=== PATIENT | female | born 1970 | race Caucasian/White ===

== ENCOUNTER 2017-08-09 20:10 | Emergency (ER) | payer OTHER ==
[2017-08-09 21:29] LABS: BASOPHILS 0.5 % (0-2); EOSINOPHILS 0.8 % (0-7); HEMATOCRIT 33.8 % (36.0-48.0); HEMOGLOBIN 11.1 g/dL (12-16); IMMATURE GRANULOCYTES 0.7 % (0-5); LYMPHOCYTES 29.1 % (15-50); MCH 28.3 pg (26.0-34.0); MCHC 32.8 g/dL (31.0-37.0); MCV 86.2 fL (80.0-100.0); MEAN PLATELET VOLUME 8.3 fL (7.4-10.4); MONOCYTES 8.3 % (2-11); NEUTROPHILS 60.6 % (40-80); PLATELET COUNT 277 10x3/uL (130-400); RBC 3.92 10x6/uL (4.00-5.40); RDW 14.1 % (11.5-14.5); WBC 8.3 10x3/uL (4.8-10.8)
[2017-08-09 21:40] LABS: ALBUMIN 2.9 g/dL (3.4-5.0); ANION GAP 12.2 mmol/L (8-16); BILIRUBIN - TOTAL 0.14 mg/dL (0.2-1.3); CALCIUM 8.5 mg/dL (8.5-10.1); CARBON DIOXIDE 26.1 mmol/L (21.0-32.0); CREATININE - SERUM 1.4 mg/dL (0.6-1.3); POTASSIUM - SERUM 3.3 mmol/L (3.5-5.1)
== END 2017-08-09 22:02 | disposition home or self-care (01) ==
LOC: D.ER 20:10
PROVIDERS: Physician Assistant Medical
DX: K08.89 Other specified disorders of teeth and supporting structures (principal)

== ENCOUNTER 2020-09-16 19:29 | Observation (INO) | payer OTHER ==
[~2020-09-16] VITALS: Ht 154.9 cm; Wt 81.8 kg
--- NOTE | ~2020-09-16 | HEMODYNAMI ---
PATIENT:NATHANIEL CROWE MEDICAL RECORD: [id number] : 74 [id number] ADMISSION DATE: 09/16/20 Generatedon:115:52 Patient name: NATHANIEL CROWE Patient #: [id number] SSN: [id number] : 1970 Date of study: 09/17/2020 Page: Of Hemodynamic Procedure Report Patient Data Patient Demographics Procedure consent was obtained First Name: NATHANIEL Gender: Female Last Name: AMRITA : 1970 Patient #: [id number] Age: 49 year(s) Race: SSN: [id number] Additional ID: [id number] Contact details Address: [address] [place] [address] rd State: [place] City: [place] Zip code: [address] Past Medical History Allergies: No known allergies Admission Admission Data Admission Date: 09/16/2020 Admission Time: 22:53 Arrival Date: 09/17/2020 Arrival Time: 0:00 Admit Source: Other Insurance Payor: Private Room #: D.2116 health insurance [facility] #: [id number] Lab Results Lab Result Date: 09/17/2020 Lab Result Time: 0:00 Biochemistry Name Units Result Min Max BUN mg/dl 21 --(----)-* 7 18 CK-MB ng/ml 2.5 --(--*-)-- 0 3.6 Creatinine mg/dl 1.3 --(---*)-- 0.6 1.3 eGFR ml/min 46 *-(----)-- 90 120 NONAFRICAN Troponin l ng/ml 0.053 --(---*)-- 0 0.06 CBC Name Units Result Min Max Hematocrit % 35.2 *-(----)-- 42 54 Hemoglobin g/dl 11.7 *-(----)-- 13.5 17.5 Procedure Procedure Types Cath Procedure Diagnostic Procedure [facility] w/Coronaries FFR/IVUS FFR Initial Sedation Charges Moderate Sedation 40-54 minutes PCI Procedure Coronary Stent Coronary Stent Initial Hemochron ACT Test Procedure Description Procedure Date Procedure Date: 09/17/2020 Procedure Start Time: 15:15 Procedure End Time: 15:50 Procedure Staff Name Function Ishaan Siegel MD Performing Physician Guera Campuzano RT Monitor Lore Denson RT Scrub Cailin Celaya RN Nurse Richardson Giraldo RN Nurse Procedure Data Cath Procedure Fluoroscopy Diagnostic fluoroscopy Total fluoroscopy Time: 7.3 time: 7.3 min min Diagnostic fluoroscopy Total fluoroscopy dose: 925 dose: 925 mGy mGy Contrast Material Contrast Material Type Amount (ml) Isovue 370 157 Entry Location Entry Primary Successful Side Size Upsize Upsize Entry Closure Giron ccessful Closure Location (Fr) 1 (Fr) 2 (Fr) Remarks Device Remarks Radial Right 6 Fr Mechanical artery Short Compression Estimated blood loss: 10 ml Diagnostic catheters Device Type Used For End Catheter Placement DIAGNOSTIC Folcroft 110cm 5 Procedure Fr catheter ([id number]) DIAGNOSTIC AR MOD 5Fr Procedure Catheter ([id number]) Procedure Complications No complications Procedure Medications Medication Administration Route Dosage Oxygen etCO2 Nasal cannula 2 l/min Lidocaine 2% added to field 20 Heparin Flush Bag added to field 2 bags (1000units/500ml NS) 0.9% NaCl I.V. 100 ml/hr Benadryl I.V. 50 mg Radial Cocktail added to field 1 syringe (Verapamil 2mg/Nitro 400mcg/Heparin 1500units) Versed I.V. 0.5 mg Versed I.V. 0.5 mg Fentanyl I.V. 50 mcg Versed I.V. 1 mg Radial Cocktail I.A. 1 syringe (Verapamil 2mg/Nitro 400mcg/Heparin 1500units) Fentanyl I.V. 50 mcg Heparin Bolus I.V. 3000 units Heparin Bolus I.V. 2000 units Fentanyl I.V. 50 mcg Nitroglycerin IC/IA I.C. 200 mcg Fentanyl I.V. 50 mcg Hemodynamics Rest HGB: 11.7 (g/dl) Heart Rate: 55 (bpm) Pressure Samples Time Site Value (mmHg) Purpose Heart Use Rate(bpm) 15:21 LV 91/6,23 Snapshot 65 15:21 AO 106/71(88) Pullback 66 15:21 LV 119/0,4 Pullback 66 Gradients Valve Time Site 1 Site 2 Mean SEP/DFP Peak To Heart Use (mmHg) (sec/min) Peak Rate (mmHg) (bpm) Aortic 15:21 LV AO 12 15 13 66 119/0,4 106/71(88) Calculations Valve P-P Mean Valve Index Valve Source Name Gradient Area Flow (cm2) Aortic 13 12 13 12 Snapshots Pre Cath Intra NCS Post Cath Vital Signs Time Heart Resp SPO2 etCO2 NIBP (mmHg) Rhythm Pain Sedation Rate (ipm) (%) (mmHg) Status Level (bpm) 15:00:05 56 12 99 36.7 158/81(106) NSR 0 (11) 10(A) , No pain 15:04:30 62 13 98 28.4 149/81(111) NSR 0 (11) 10(A) , No pain 15:08:52 64 12 97 39.7 149/85(101) NSR 0 (11) 10(A) , No pain 15:13:14 65 16 99 28.4 144/79(108) NSR 0 (11) 10(A) , No pain 15:17:36 67 12 100 38.9 143/79(100) NSR 0 (11) 10(A) , No pain 15:21:44 64 12 99 39.7 118/75(102) NSR 0 (11) 10(A) , No pain 15:25:58 69 12 98 41.9 136/77(99) NSR 0 (11) 10(A) , No pain 15:30:16 70 12 98 39.7 138/86(107) NSR 0 (11) 10(A) , No pain 15:34:34 69 12 98 41.1 152/96(128) NSR 0 (11) 10(A) , No pain 15:38:58 75 13 98 27.7 154/89(123) NSR 0 (11) 10(A) , No pain 15:43:18 70 12 99 40.4 153/92(116) NSR 0 (11) 10(A) , No pain 15:47:39 69 18 98 34.4 144/81(105) NSR 0 (11) 10(A) , No pain Medications Time Medication Route Dose Verified Delivered Reason Not es Effectiveness by by 14:57:53 Oxygen etCO2 2 l/min Ishaan Simeon used for Nasal [facility] Celaya mechanical field engineer cannula 14:58:08 Lidocaine 2% added 20ml Ishaan Quiros for local [facility] MD POMPA 14:58:30 Heparin Flush added 2 bags Ishaan Quiros used for Bag to [facility] procedure (1000units/500ml field MD POMPA NS) 14:58:41 0.9% NaCl I.V. 100 Ishaan Bai Per physician ml/hr [facility] Jeremiah Giraldo RN, MD 14:58:59 Benadryl I.V. 50 mg Ishaan Bai used for [facility] Giraldo RN procedure 15:03:19 Radial Cocktail added 1 Ishaan Quiros used for (Verapamil to syringe [facility] procedure 2mg/Nitro field MD POMPA 400mcg/Heparin 1500units) 15:03:22 Versed I.V. 0.5 mg Ishaan Richardson for sedation [facility] Giraldo RN, MD 15:03:32 Fentanyl I.V. 50 mcg Ishaan Da Silvay for sedation [facility] Giraldo RN, MD 15:10:26 Versed I.V. 0.5 mg Ishaan Richardson for sedation [facility] Jerem[facility] Giraldo RN, MD 15:16:02 Versed I.V. 1 mg Ishaan Richardson for sedation [facility] Jerem[facility] Giraldo RN, MD 15:20:31 Radial Cocktail I.A. 1 Ishaan Quiros used for (Verapamil syringe [facility] procedure 2mg/Nitro MD POMPA 400mcg/Heparin 1500units) 15:21:41 Fentanyl I.V. 50 mcg Ishaan Da Silvay for sedation [facility] Jerem[facility] Giraldo RN, MD 15:31:44 Heparin Bolus I.V. 3000 Ishaan Da Silvay for units [facility] Jeremiah Giraldo RN anticoagulation 15:37:40 Heparin Bolus I.V. 2000 Ishaan Richardson for units [facility] Jerem[facility] Giraldo RN anticoagulation 15:40:28 Fentanyl I.V. 50 mcg Ishaan Richardson for sedation [facility] Jerem[facility] Giraldo RN, MD 15:44:32 Nitroglycerin I.C. 200 mcg Ishaan Quiros for IC/IA Christal [facility] Jerem[facility] french MD, MD 15:46:04 Fentanyl I.V. 50 mcg Ishaan Richardson for sedation [facility] Jerem[facility] Giraldo RN, MD Procedure Log Time Note 14:27:12 Informed consent obtained and on chart 14:27:34 Diagnostic Cath Status : Urgent 14:27:51 Arrival Date: 09/17/2020 12:00:00 AM 14:27:52 Admit Source: Other 14: Insurance Payor : Private health insurance : Lab Result : CK-MB 2.5 ng/ml Lab Result : Troponin l 0.053 ng/ml Lab Result : BUN 21 mg/dl Lab Result : Creatinine 1.3 mg/dl : Lab Result : eGFR NONAFRICAN 46 ml/min : Lab Result : Hemoglobin 11.7 g/dl : Lab Result : Hematocrit 35.2 % 14:32:04 ACC Patient presents with Unstable Angina CCS Anginal Class 2--Slight limitation of ordinary activity. 14:32:07 Procedure Status Urgent Heart Cath (IP). 14:32:10 Time tracking: Regular hours (M-F 7:00 - 5:00) 14:32:14 Plan of Care:Hemodynamics will remain stable., Cardiac rhythm will remain stable., Comfort level will be maintained., Respiratory function will remain adequate., Patient/ family verbilizes understanding of procedure., Procedure tolerated without complication., Recovers from procedure without complications.. 14:34:06 H&P Date Dictated: 09/16/2020 Within 30 days and on chart.. 14:34:06 Pre-procedure instructions explained to patient. 14:34:07 Pre-op teaching completed and patient verbalized understanding. 14:34:08 Family unavailable. 14:34:10 Patient NPO since Midnight. 14:34:20 Patient allergic to No known allergies 14:35:44 Lab results completed and on chart. 14:35:48 Stress Test: no; N/A ? 14:35:50 Alarms reviewed by R. N. 14:35:51 Sharps counted by scrub and verified by R.N. 14:36:13 Cailin Celaya RN sent for patient. Start room use. 14:40:27 Risk of Mortality: 0.1 14:40:29 Risk of blood transfusion: 1.1 14:40:31 Risk of FELIX: 3.4 14:48:01 Patient received from Med II to CCL 1 Alert and oriented. Tansferred to table in Supine position. 14:48:03 Warm blankets applied, and lana hugger turned on for patient comfort. 14:48:03 Correct patient and procedure confirmed by team. 14:48:04 ECG and BP/O2 sat monitors applied to patient. 14:48:05 Full Disclosure recording started 14:48:07 Is the patient allergic to Iodine/contrast media? No. 14:48:09 Was the patient premedicated? No 14:57:43 Vital chart was started 14:57:53 Oxygen 2 l/min etCO2 Nasal cannula was administered by Cailin Celaya RN; used for procedure; Verbal order read back and verified. 14:58:08 Lidocaine 2% 20ml vial added to field was administered by Ishaan Siegel MD; for local anesthetic; Verbal order read back and verified. 14:58:30 Heparin Flush Bag (1000units/500ml NS) 2 bags added to field was administered by Ishaan Siegel MD; used for procedure; Verbal order read back and verified. 14:58:41 0.9% NaCl 100 ml/hr I.V. was administered by Richardson Giraldo RN; Per physician; Verbal order read back and verified. 14:58:59 Benadryl 50 mg I.V. was administered by Richardson Giraldo RN; used for procedure; Verbal order read back and verified. 14:59:58 Baseline sample Acquired. 15:00:05 Rhythm: sinus rhythm 15:00:10 Is patient on blood thinner?Yes 15:00:14 ACC The patient was administered the following blood thiners within the last 24 hours: ACCLovenox 15:00:17 Patient diabetic? No. 15:00:19 If diabetic: On Metformin? N/A 15:00:29 Patient not . Patient has had tubal. 15:00:31 ----Pre-sedation anethsthesia assessment.---- 15:00:34 Previous problem with sedation/anesthesia? No ? 15:00:35 Snore? Unknown 15:00:37 Sleep apnea? Unknown 15:00:38 Deviated septum? No 15:00:39 Opens mouth fully? Yes 15:00:40 Sticks out tongue? Yes 15:00:42 Airway obstruction? No ? 15:01:05 Dentures? Yes IN TIGHT 15:01:30 Pre procedure: right dorsailis pedis pulse 1+ Palpable, but thready & weak; easily obliterated 15:01:33 Modified Shin's test Ulnar < 7 seconds 15:01:36 Patient pain scale 0/10 ?. 15:02:03 IV IN LT FOOT 20 GAUGE. 15:02:20 Right Radial & Right Groin area was prepped with chlora-prep and draped in sterile fashion 15:02:32 Use device set Radial Dx or PCI 15:02:33 ACIST Syringe (67651) opened to sterile field. 15:02:34 Medline Cath Pack ([id number]) opened to sterile field. 15:02:34 Bag Decanter (2002) opened to sterile field. 15:02:35 ACIST Hand Control (88622) opened to sterile field. 15:02:36 ACIST Manifold (44802) opened to sterile field. 15:02:37 MBrace Wrist Support ([id number]) opened to sterile field. 15:02:38 EMERALD Guide Wire (179-994) opened to sterile field. 15:02:38 SHEATH 6FR RAIN (1833798) opened to sterile field. 15:02:45 --------ALL STOP TIME OUT------ 15:02:45 Final Timeout: patient, procedure, and site verified with staff and physician. All members of the team are in agreement. 15:02:47 Right Radial & Right Groin site verified by team. 15:02:51 Fire Safety Assessment: A--An alcohol-based skin anteseptic being used preoperatively., C--Open oxygen or nitrous oxide is being used., D--An ESU, laser, or fiber-optic light is being used. 15:02:54 Physical assessment completed. ASA score P 2 - A patient with mild systemic disease as per Ishaan Siegel MD. 15:03:00 3a) 45-59 Moderately reduced kidney function. 15:03:02 Maximum allowable contrast dose (3.7 X eGFR X 0.75)128 ml. 15:03:06 Sedation plan: IV Moderate Sedation Medication:Versed, Fentanyl 15:03:19 Radial Cocktail (Verapamil 2mg/Nitro 400mcg/Heparin 1500units) 1 syringe added to field was administered by Ishaan Siegel MD; used for procedure; Verbal order read back and verified. 15:03:22 Versed 0.5 mg I.V. was administered by Richardson Enzo RN; for sedation; Verbal order read back and verified. 15:03:32 Fentanyl 50 mcg I.V. was administered by Richardson Giraldo RN; for sedation; Verbal order read back and verified. 15:03:37 patient requests to stay awake during procedure. patient instructed to notify nurse of any discomfort during procedure. patient verbalizes understanding 15:10:26 Versed 0.5 mg I.V. was administered by Richardson Giraldo RN; for sedation; Verbal order read back and verified. 15:15:36 Procedure started. 15:15:49 Local anesthetic to left radial artery with Lidocaine 2% by Ishaan Siegel MD.INITIAL ACCESS ONLY 15:16:02 Versed 1 mg I.V. was administered by Richardson Giraldo RN; for sedation; Verbal order read back and verified. 15:19:34 A 6 Fr Short sheath was inserted into the Right Radial artery 15:20:18 A DIAGNOSTIC Folcroft 110cm 5 Fr catheter ([id number]) was advanced over the wire and used for Procedure. 15:20:28 LV gram done using COOLEY 15:20:31 Radial Cocktail (Verapamil 2mg/Nitro 400mcg/Heparin 1500units) 1 syringe I.A. was administered by Ishaan Siegel MD; used for procedure; Verbal order read back and verified. 15:21:37 LV hemodynamics recorded. 15:21:39 Injector settings: Ml/sec: 5, Volume: 15, 15:21:41 Fentanyl 50 mcg I.V. was administered by Richardson Giraldo RN; for sedation; Verbal order read back and verified. 15:21:44 EF : 55 % 15:21:58 LCA angiography performed. 15:22:06 Injector settings: Ml/sec: 3, Volume: 6, 15:25:48 UNABLE TO ENGAGE RIGHT CHANGING GUIDES. 15:26:16 Catheter removed. 15:26:51 A DIAGNOSTIC AR MOD 5Fr Catheter ([id number]) was advanced over the wire and used for Procedure. 15:28:12 UNABLE TO ENGAGE RIGHT . 15:28:15 Catheter removed. 15:29:47 Proceeding to intervention. 15:30:02 GUIDE 6FR EBU 3.0 catheter ([id number]) opened to sterile field. 15:30:03 INFLATOR Merit BasixCompak (RG0754) opened to sterile field. 15:30:04 [place]issant OmniWire (14785) opened to sterile field. 15:30:15 6 Fr EBU 3.0 guide catheter was inserted over the wire 15:31:44 Heparin Bolus 3000 units I.V. was administered by Richardson Giraldo RN; for anticoagulation; Verbal order read back and verified. 15:32:11 Pressure wire advanced. 15:34:33 Wire advanced across lesion. 15:35:33 LAD lesion measured at .83 with IFR 15:36:10 ACC Pre-intervention WILIAM Flow is 3. 15:37:40 Heparin Bolus 2000 units I.V. was administered by Richardson Giraldo RN; for anticoagulation; Verbal order read back and verified. 15:39:06 Place stent Inflation Number: 1 A SARAI RX 3.5 x 22 stent ([id number]) was prepped and advanced across the Prox LAD 80. The stent was deployed at 12 CASSIDY for 0:26 (min:sec) . 15:40:23 Inflation number: 2 The stent balloon was then re-inflated across the Prox LAD to 12 CASSIDY for 0:00 (min:sec) . 15:40:28 Fentanyl 50 mcg I.V. was administered by Richardson Giraldo RN; for sedation; Verbal order read back and verified. 15:44:32 Nitroglycerin IC/IA 200 mcg I.C. was administered by Ishaan Siegel MD; for vasodilation; Verbal order read back and verified. 15:45:48 Stent catheter was removed intact over wire. 15:46:01 POST LAD MEASUREMENT .90. 15:46:04 Fentanyl 50 mcg I.V. was administered by Richardson Giraldo RN; for sedation; Verbal order read back and verified. 15:46:08 Wire removed. 15:46:09 Guide catheter removed. 15:46:51 ZEPHYR REGULAR TR BAND (219822) opened to sterile field. 15:47:03 Sheath removed intact; hemostasis achieved with Mechanical Compression to the Right Radial artery. 15:47:08 Fluoroscopy time 07.30 minutes. 15:47:14 Fluoroscopy dose: 925 mGy 15:47:14 Flurop Dose total: 925 15:47:20 Dose Area Product 57037 mGy/cm. 15:47:24 Contrast amount:Isovue 370 157ml. 15:47:26 Procedure ended.(Physican Out) 15:47:46 Maximum allowable dose exceeded? Yes. 15:47:53 Sharps counted by scrub and verified by R.N. 15:48:31 Post Procedure Pulses reassessed and unchanged 15:48:34 Post procedure: right dorsailis pedis pulse 1+ Palpable, but thready & weak; easily obliterated. 15:48:38 Post-procedure physical assessment completed. ASA score P 2 - A patient with mild systemic disease as per Ishaan Siegel MD. 15:48:41 Post procedure rhythm: unchanged. 15:48:44 Estimated blood loss: 10 ml 15:48:45 Post procedure instruction explained to patient.Patient verbalizes understanding. 15:48:46 Patient needs reinforcement of post procedure teaching. 15:49:05 Procedure type changed to Cath procedure, Diagnostic procedure, LHC, [facility] w/Coronaries, FFR/IVUS, FFR Initial, Sedation Charges, Moderate Sedation 40-54 minutes, PCI procedure, Coronary Stent, Coronary Stent Initial, Hemochron ACT Test 15:50:35 Procedure and supply charges have been captured, reviewed, submitted and are correct. 15:50:39 Procedure Complication : No complications 15:50:44 [facility] Findings: MVD- PCI performed (see procedure note) 15:50:47 Operative report dictated upon procedure completion. 15:50:47 See physician's report for complete and final results. 15:50:50 Report given to [facility]. 15:50:54 Patient transfered to [facility] with Bed. 15:50:57 Procedure ended. 15:50:57 Full Disclosure recording stopped 15:51:06 ACC-PCI Only Patient was given prescriptions, or instructed by Ishaan Siegel MD to start/continue the following medications upon discharge: Plavix 15:51:07 End room use (Document Last) 15:51:29 End room use (Document Last) 15:51:46 End room use (Document Last) 15:52:15 ACT drawn and resulted at 208 seconds. (normal therapeutic range 180-240 seconds). 15:52:49 Vital chart was stopped Intervention Summary Intervention Notes Time ActionType Lesion and Equipment Used Action# Pressure Duration Attributes 15:39:06 Place stent Prox LAD SARAI RX 3.5 x 1 12 00:26 22 stent ([id number]) 15:40:23 Reinflate Prox LAD SARAI RX 3.5 x 2 12 00:00 stent 22 stent balloon ([id number]) Device Usage Item Name Manufacture Quantity Catalog Hospital Part Critical access hospital Lot# / Number Charge Number Stock Stock Serial# Code ACIST Syringe Acist 1 29250 899993 431564 656732 20 (92388) Medical Systems Inc Medline Cath Medline 1 [id number] 227822 33877 227259 5 Pack ([id number]) Bag Decanter Microtek 1 2001S 688916 39864 924852 5 () Medical Inc. ACIST Hand Acist 1 74361 980643 581685 597576 5 Control Medical (98199) Systems Inc ACIST Manifold Acist 1 23814 454584 870709 429212 5 (08128) Medical Systems Inc MBrace Wrist Advanced 1 140-0250-00 304152 31916 466716 5 Support Vascular ([id number]) Dynamics EMERALD Guide Cardinal 1 502-455 839128 939333 270021 5 Wire (502455) Health SHEATH 6FR Cardinal 1 0986700 735456 0536520 849160 5 RAIN (1119621) Health DIAGNOSTIC Terumo 1 405013 406351 467313 475080 5 Folcroft 110cm 5 Fr catheter (800199) DIAGNOSTIC AR Cardinal 1 [id number] 486923 684570 462881 15 MOD 5Fr Health Catheter (892579P) GUIDE 6FR EBU Medtronic 1 [id number] 496467 24971 246896 0 3.0 catheter ([id number]) INFLATOR Merit Merit 1 MI5338 553838 972332 775254 15 Rocket [facility] Strategies [facility] (UD5435) Florissant Florissant 1 [id number] 071940 13258 9954 5 OmniWire (72734) SARAI RX 3.5 x Medtronic 1 [id number] 035944 9805208 531906 5 [id number] 22 stent ([id number]) ZEPHYR REGULAR Cardinal 1 866864 156419 7724370 804223 5 TR [place] (595768) Signature Audit [place] Stage Time Signature Unsigned Intra-Procedure 09/17/2020 Guera Campuzano 3:51:29 PM RT(R) Intra-Procedure 09/17/2020 Cailin Celaya RN 3:51:46 PM Intra-Procedure 09/17/2020 Ishaan Fofana 3:52:47 PM Jeremiah POMPA [facility] [address] [place] [address]
[2020-09-16] MEDS ORDERED: VALTREX1000 MG PO (19:50)
[2020-09-16] MEDS ORDERED: PLAVIX75 MG PO (19:50)
[2020-09-16] MEDS ORDERED: PROTONIX40 MG PO (19:50)
[2020-09-16] MEDS ORDERED: FEXOFENADINE H180 MG PO (19:51)
[2020-09-16] MEDS ORDERED: PROPRANOLOL HCL20 MG PO (19:51)
[2020-09-16] MEDS ORDERED: BENICAR20 MG PO (19:51)
[2020-09-16] MEDS ORDERED: BUPROPION HCL100 MG PO (19:53)
[2020-09-16] MEDS ORDERED: LEVOCETIRIZINE (19:53)
[2020-09-16] MEDS ORDERED: ZANAFLEX4 MG PO (19:53)
[2020-09-16] MEDS ORDERED: BENICAR HCT 201 EAC1 PO (19:54)
[2020-09-16] MEDS ORDERED: BAYER CHEWABLE81 MG PO (19:54)
[2020-09-16] MEDS ORDERED: CYMBALTA60 MG PO (19:54)
[2020-09-16] MEDS ORDERED: NORVASC5 MG PO (19:55)
[2020-09-16] MEDS ORDERED: BACTRIM DS TAB1 EAC1 PO (19:55)
[2020-09-16] MEDS ORDERED: VITAMIN D21250 MC1 PO (19:55)
[2020-09-16] MEDS ORDERED: EXCEDRIN (19:56)
[2020-09-16] MEDS ORDERED: ACETAMINOPHEN500 M1 PO (19:56)
[2020-09-16 20:30] LABS: UDS - AMPHET NEGATIVE QUAL (NEGATIVE); UDS - BARB NEGATIVE QUAL (NEGATIVE); UDS - BENZO NEGATIVE QUAL (NEGATIVE); UDS - COCAINE NEGATIVE QUAL (NEGATIVE); UDS - OPIATE POSITIVE QUAL (NEGATIVE); UDS - PCP NEGATIVE QUAL (NEGATIVE); UDS - THC NEGATIVE QUAL (NEGATIVE)
[2020-09-16 20:33] LABS: BILIRUBIN NEGATIVE (NEGATIVE); KETONE NEGATIVE (NEGATIVE); NITRITE NEGATIVE (NEGATIVE); UROBILINOGEN NORMAL mg/dL (< 2)
[2020-09-16] MEDS ORDERED: HYDROCODON-ACE1 EA10 PO (20:38)
[2020-09-16 21:40] LABS: BASOPHILS 0.4 % (0-2); HEMATOCRIT 39.6 % (36.0-48.0); HEMOGLOBIN 13.4 g/dL (12-16); IMMATURE GRANULOCYTES 0.4 % (0-5); LYMPHOCYTE ABS# 4.21 10x3/uL (1.18-3.74); LYMPHOCYTES 42.7 % (15-50); MCH 28.6 pg (26.0-34.0); MCHC 33.8 g/dL (31.0-37.0); MCV 84.6 fL (80.0-100.0); MEAN PLATELET VOLUME 9.2 fL (7.4-10.4); MONOCYTES 8.7 % (2-11); NEUTROPHIL ABS# 4.41 10x3/uL (1.56-6.13); NEUTROPHILS 44.8 % (40-80); RBC 4.68 10x6/uL (4.00-5.40); RDW 14.6 % (11.5-14.5); WBC 9.9 10x3/uL (4.8-10.8)
[2020-09-16 21:52] LABS: ANION GAP 20.5 mmol/L (8-16); CALCIUM 9.5 mg/dL (8.5-10.1); POTASSIUM - SERUM 3.5 mmol/L (3.5-5.1)
[2020-09-16 22:01] LABS: BILIRUBIN - TOTAL 0.22 mg/dL (0.2-1.3); TROPONIN-I 0.033 ng/mL (0.000-0.060)
[2020-09-16 22:15] VITALS: BP 167/91
[2020-09-16 22:17] LABS: PLATELET COUNT 441 10x3/uL (130-400)
[2020-09-16 23:00] LABS: APTT 24.8 SECONDS (22.8-39.4); INR 0.99 (0.85-1.17); PROTIME 12.1 SECONDS (11.6-15.0)
[2020-09-17 02:21] VITALS: BP 183/96; Ht 154.9 cm; Wt 81.8 kg
--- NOTE | 2020-09-17 03:21 | NUR ---
RECIEVED REPORT FROM ER. ARRIVED TO FLOOR IN W/C. ALERT AND ORIENTTED X4. UP AD RONIT. UPON COMPLETEING ASSESSMENT AIDE CAME TO THIS NURSE WITH LOW B/P READING AFTER GETTING A HIGH READING. B/P 51/30. CALLED A RAPID. BOLUS OF FLUID GIVEN AND SMILEY CHAUDHARI NOTIFIED. B/P AT THIS TIME IS 104/63.RECIEVEING NS AT 100CC/HR.
[2020-09-17 05:09] VITALS: BP 109/62
[2020-09-17 05:51] LABS: BASOPHILS 0.5 % (0-2); EOSINOPHILS 3.8 % (0-7); HEMATOCRIT 35.2 % (36.0-48.0); HEMOGLOBIN 11.7 g/dL (12-16); IMMATURE GRANULOCYTES 0.1 % (0-5); LYMPHOCYTE ABS# 3.02 10x3/uL (1.18-3.74); LYMPHOCYTES 39.2 % (15-50); MCH 28.6 pg (26.0-34.0); MCHC 33.2 g/dL (31.0-37.0); MCV 86.1 fL (80.0-100.0); MONOCYTES 9.1 % (2-11); NEUTROPHIL ABS# 3.65 10x3/uL (1.56-6.13); NEUTROPHILS 47.3 % (40-80); RBC 4.09 10x6/uL (4.00-5.40); RDW 14.7 % (11.5-14.5); WBC 7.7 10x3/uL (4.8-10.8)
[2020-09-17 06:04] LABS: PLATELET COUNT 333 10x3/uL (130-400)
[2020-09-17 06:16] LABS: ALBUMIN 3.4 g/dL (3.4-5.0); ALKALINE PHOSPHATASE 50 U/L (30-120); ALT (SGPT) 25 U/L (10-68); BILIRUBIN - TOTAL 0.14 mg/dL (0.2-1.3); CALC OSMOLALITY 281 mosm/kg (275-300); CALCIUM 8.8 mg/dL (8.5-10.1); CARBON DIOXIDE 21.5 mmol/L (21.0-32.0); CHLORIDE - SERUM 105 mmol/L (98-107); CKMB 2.5 U/L (0.0-3.6); CREATINE KINASE 48 UL (21-215); GLUCOSE 105 mg/dL (74-106); MAGNESIUM - SERUM 2.1 mg/dL (1.8-2.4); PHOSPHOROUS 4.9 mg/dL (2.5-4.9); POTASSIUM - SERUM 3.5 mmol/L (3.5-5.1); PROTEIN - SERUM 6.8 g/dL (6.4-8.2); SODIUM 140 mmol/L (136-145); TROPONIN-I 0.053 ng/mL (0.000-0.060); UREA NITROGEN 21 mg/dL (7-18); eGFR NON AFRICAN AMERICAN 46 mL/min (90-120)
[2020-09-17 06:17] LABS: CREATININE - SERUM 1.3 mg/dL (0.6-1.3)
[2020-09-17 08:00] VITALS: BP 178/88
[2020-09-17 10:14] LABS: CKMB 4.4 U/L (0.0-3.6); CREATINE KINASE 62 UL (21-215)
[2020-09-17 10:21] LABS: TROPONIN-I 0.465 ng/mL (0.000-0.060)
[2020-09-17 11:07] VITALS: BP 186/97
[2020-09-17] MEDS ORDERED: BISOPROLOL FUMAR5 MG PO (15:53)
[2020-09-17] MEDS ORDERED: CARAFATE1 G PO (15:54)
--- NOTE | 2020-09-17 18:17 | NUR ---
RELEASED 2 CC OF AIR FROM TR BAND. NO BLEEDING. NO HEMATOMA. DISCHARGE INSTRUCTIONS PROVIDED TO PATIENT. VERBALIZED UNDERSTANDING. WILL DISCHARGE WHEN TR BAND IS REMOVED.
--- NOTE | 2020-09-17 20:51 | NUR ---
TR BAND REMOVED FROM RIGHT WRIST PER PROTOCOL. NO S/S OF BLEEDING OBSERVED. PIV REMOVED FROM LEFT ANKLE. CATHETER TIP INTACT. ESCORTED PT OUT TO PRIVATE VEHICLE. D/C PAPERWORK COMPLETE.
--- NOTE | 2020-09-18 11:09 | CN ---
PATIENT NAME:NATHANIEL CROWE MEDICAL RECORD: [id number] : 74 LOCATION:D. D.2116 ADMIT DATE: 09/16/20 ACCOUNT: [id number] CONSULTING PHYSICIAN: MACEY CASTILLO MD REFERRING PHYSICIAN: SUMAN SCHMITZ MD DATE OF CONSULTATION: 09/17/2020 HISTORY OF PRESENT ILLNESS: A 49-year-old female with a known history of coronary artery disease, status post intervention at [facility]. Has been having marked recurrent chest pain and tightness with exertion, who recently was sent to [facility]; however, secondary to bed availability apparently was moved here. Pain is reminiscent of her previous angina. Has multiple risk factors, subsequently found to have elevated cardiac enzymes. We were asked to see her concerning her cardiovascular status. PAST MEDICAL HISTORY: 1. History of coronary artery disease as described above. 2. Hypertension. 3. Hyperlipidemia. MEDICATIONS: Include Carafate 1 g a.c. and at bedtime, Protonix 40 mg p.o. every day, Immaculata 10/325 one q.4, aspirin 81 every day, Cymbalta 60 every day, Wellbutrin 100 mg p.o. b.i.d., Zebeta 10 mg p.o. b.i.d., amlodipine 5 every day, Benicar 20 every day, Plavix 75 every day, Zanaflex 4 mg q.8 p.r.n. SOCIAL HISTORY: Works as a mail service coordinator. Nonsmoker, nondrinker. No set exercise program. ALLERGIES: WILLOW. REVIEW OF SYSTEMS: The patient reports easy bruising but reports no swollen glands. The patient reports no fever, no night sweats, no significant weight gain, no significant weight loss. No significant exercise tolerance. The patient reports no dry eyes, no irritation, no vision change. Patient reports no difficulty hearing and no ear pain. Patient reports no frequent nose bleeds or nose and sinus problems. Patient reports on arm pain on exertion. No shortness of breath while lying down. No history of heart murmur. Patient reports no cough, no wheezing or coughing up blood. Patient reports no abdominal pain, no vomiting. Normal appetite. No diarrhea and not vomiting blood. No nausea and no constipation. Patient reports no incontinence. No difficulty urinating. No hematuria. No increased frequency. Patient reports no muscle aches. No weakness, no arthralgias, no back pain. No swelling of the extremities. Patient reports no abnormal mole, no jaundice, no rashes. Reports no loss of consciousness. No weakness and no numbness. No seizures, dizziness, or headaches. The patient reports no depression, no sleep disturbance, feeling safe in a relationship and no alcohol abuse. Patient reports on fatigue. Reports no runny nose or sinus pressure. No itching, no hives, and no frequent sneezing. PHYSICAL EXAMINATION: GENERAL: No acute distress, appears stated age. VITAL SIGNS: Blood pressure 186/97, pulse 70 and regular. HEENT: Normocephalic, atraumatic. NECK: No JVD or bruit. HEART: Regular. Questionable S4 gallop. CONSULT REPORT [id number] NATHANIEL CROWE LUNGS: Good air excursion. ABDOMEN: Soft and nontender. EXTREMITIES: Pulses were preserved, 2+ with no edema. NEUROLOGIC: Grossly intact. DIAGNOSTIC DATA: EKG shows nonspecific ST-T changes. IMPRESSION: Acute coronary syndrome/elw-BA-ntdezcfxm myocardial infarction with elevated cardiac enzymes. PLAN: For angiography, intervention based on above. TRANSINT:[id number] Voice Confirmation ID: [id number] DOCUMENT ID: [id number] MACEY CASTILLO MD at 1109 CC: [id number] DICTATION DATE: 09/17/20 155 TRIMMER TAILER: 09/17/20 180 DIS IN 09/17/20 [facility] [address] [place] [address]
--- NOTE | 2020-09-18 11:09 | OP ---
PATIENT NAME: NATHANIEL CROWE MEDICAL RECORD: [id number] :74 LOCATION:D.M2 D.2116 ADMISSION DATE:09/16/20 SURGEON: MACEY CASTILLO MD DATE OF OPERATION: 09/17/2020 PROCEDURE: Left heart catheterization, selective coronary angiography plus IFR wire pre and post LAD plus stenting of the LAD. FINDINGS: Left ventriculography in 30-degree COOLEY view; normal wall motion, normal systolic function. CORONARY ANATOMY: LEFT MAIN: Left main is free of disease. LAD: The previously placed stent appears to be patent with a nice step down distally. There is an area of stenosis proximally that may be secondary to previous intervention with restenosis type phenomenon. CIRCUMFLEX: Huge dominant circ clear of disease. RIGHT Coronary ARTERY: Appears rudimentary, is totally occluded and fills via left to right collaterals. TECHNIQUE: IFR wire was placed down the distal portion of the vessel and confirmed significant stenosis proximally. Stent deployed was a 3.5 x 22 mm [place] drug-eluting stent up to 45 atmospheres. Post-deployment showed improvement with IFR above 0.9. IMPRESSION: Successful percutaneous transluminal angioplasty stenting. Probable restenosis phenomena at the proximal left anterior descending. Sheath was closed with TR band. The patient was previously on Plavix. Heparin was used during the case. TRANSINT:[id number] Voice Confirmation ID: [id number] DOCUMENT ID: [id number] MACEY CASTILLO MD at 1109 CC: [id number] DICTATION DATE: 09/17/20 1559 STEREOTYPER APPRENTICE: 09/17/20 1734 DIS IN 09/17/20 [id number] [place] [address]
== END 2020-09-17 20:56 | disposition home or self-care (01) ==
LOC: D.ER 19:29 → D.M2 22:53 → OBSVTIME 22:53 → D.M2 22:53
PROVIDERS: Emergency Medicine; ADMIT Emergency Medicine; ATTEND Emergency Medicine
DX: I25.10 Atherosclerotic heart disease of native coronary artery without angina pectoris (principal); I10 Essential (primary) hypertension; K21.9 Gastro-esophageal reflux disease without esophagitis; R07.9 Chest pain, unspecified; F41.8 Other specified anxiety disorders; F41.0 Panic disorder [episodic paroxysmal anxiety]

== ENCOUNTER 2020-11-13 14:09 | Emergency (ER) | payer OTHER ==
[~2020-11-13] VITALS: Ht 154.9 cm; Wt 75.9 kg
[~2020-11-13 14:09] MED LIST: ACETAMINOPHEN500 M1 PO; BACTRIM DS TAB1 EAC1 PO; BAYER CHEWABLE81 MG PO; BENICAR HCT 201 EAC1 PO; BENICAR20 MG PO; BISOPROLOL FUMAR5 MG PO; BUPROPION HCL100 MG PO; CARAFATE1 G PO; CYMBALTA60 MG PO; EXCEDRIN; FEXOFENADINE H180 MG PO; HYDROCODON-ACE1 EA10 PO; LEVOCETIRIZINE; NORVASC5 MG PO; PLAVIX75 MG PO; PROPRANOLOL HCL20 MG PO; PROTONIX40 MG PO; VALTREX1000 MG PO; VITAMIN D21250 MC1 PO; ZANAFLEX4 MG PO
[2020-11-13 14:16] VITALS: BP 150/66; Ht 154.9 cm; Wt 75.9 kg
[2020-11-13] MEDS ORDERED: LEVOFLOXACIN500 MG PO (15:53)
[2020-11-13] MEDS ORDERED: LITHIUM CARBON300 MG PO (15:55)
[2020-11-13] MEDS ORDERED: TESSALON PERLE100 MG PO (17:06)
== END 2020-11-13 17:54 | disposition home or self-care (01) ==
LOC: D.ER 14:09
DX: J18.9 Pneumonia, unspecified organism (principal); R05 Cough; R06.02 Shortness of breath; I10 Essential (primary) hypertension; K21.9 Gastro-esophageal reflux disease without esophagitis